=== PATIENT | male | born 1970 | race Caucasian/White ===

== ENCOUNTER 2017-03-21 07:02 | Day surgery (SDC) | payer OTHER ==
[~2017-03-21 07:02] MED LIST: LIDOCAINE 2% VISCOUS(20 MG/1 ML) - 15 ML UD CUP PO ONE; LIDOCAINE HCL/PF 2% (20 MG/ML) - 5 ML SYRINGE ONE; MIDAZOLAM 5 MG/1 ML ONE; fentaNYL Inj 100 MCG/2 ML VIAL ONE
[2017-03-21] MEDS ORDERED: Lactated Ringers 1,000 ML PRIMARY IV ONE (07:08)
[2017-03-21] MEDS ORDERED: LIDOCAINE W/ SODIUM BICARB 0.5 ML SYR ONE (07:08)
--- NOTE | 2017-03-21 08:36 | GEN.OPNOTE ---
EGD Operative Note Surgery Date: 03/21/17 Preoperative Diagnosis: GERD. Esophagitis. Postoperative Diagnosis: GERD. Esophagitis. 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 Small hiatal hernia. Procedure: Esophagogastroduodenoscopy with biopsy. Surgeon: Kavin Austin MD Anesthesia Provider: Marlon Elizabeth CRNA Anesthesia Type: MAC Indications: See preoperative diagnosis. Patient presented 3 months ago with a foreign body in his esophagus. He had a dilation. There was severe erosive esophagitis with possible Steele's change. He is here for follow-up endoscopy. Findings: Esophagus: [Widely patent. Some evidence of abnormal mucosa in the midesophagus.] GE Junction : [Irregular Z line consistent with Steele's change. Small hiatal hernia.] Fundus : [Normal] Body : [Normal] Prepyloric : [Mild erythema] Small Intestine : [Normal] A lubricated flexible upper endoscope was inserted and passed through the esophagus and stomach into the duodenum. The duodenum and duodenal bulb were unremarkable. The pyloric channel was patent. There is some mild erythema in the antrum. Biopsies were taken. Hemostasis was assured. The remainder of the gastric mucosa was unremarkable. The scope was withdrawn into the distal esophagus. There was a small hiatal hernia. There was a markedly irregular Z line with what appeared to be Steele's change. Multiple circumferential biopsies were taken. Hemostasis was assured. The scope was withdrawn to the midesophagus. This looks like healing where he had his prior severe esophagitis. Multiple biopsies were taken. Hemostasis was assured. There was no evidence of an esophageal stricture. The scope was withdrawn through the remainder of a normal-appearing esophagus and brought through the hypopharynx under suction completing the procedure. Patient tolerated the procedure well without complication. He was taken to outpatient surgery in stable condition. We will call the biopsy results when available. Patient will continue on a proton pump inhibitor indefinitely. If he in fact has Steele's plan follow-up surveillance in 2 years time. Estimated Blood Loss (mL): 1 Fluids: 1000 mL of crystalloid. Pathology: Specimens from the antrum, distal esophagus, and mid esophagus. Complications: None.
[2017-03-21 09:27] VITALS: RESP 18; TEMP 97.6
== END 2017-03-21 08:56 | disposition home or self-care (01) ==
LOC: SDSC 07:02
PROVIDERS: ATTEND Surgery
DX: K21.0 Gastro-esophageal reflux disease with esophagitis (principal); K44.9 Diaphragmatic hernia without obstruction or gangrene
CPT/HCPCS: 43239; J2704; J3010; J2001; J2250; J7120